=== PATIENT | female | born 1960 | race Caucasian/White ===

== ENCOUNTER 2021-10-31 08:27 | Outpatient (CLI) | payer MEDICARE, MEDICAID, SELFPAY ==
[2021-10-31 14:46] LABS: Alanine Aminotransferase* 45 U/L (4-35); Aspartate Amino Transferase* 46 U/L (12-35)
[2021-10-31 15:02] LABS: Free T4 Free Thyroxine* 0.81 ng/dL (0.70-1.85)
[2021-10-31 15:20] LABS: Thyroid Stimulating Hormone* < 0.015 uIU/mL (0.270-4.20)
== END 2021-10-31 08:28 | disposition home or self-care (01) ==
PROVIDERS: PCP Nurse Practitioner Family; Visit Provider Nurse Practitioner Family
DX: E03.9 Hypothyroidism, unspecified (principal); R74.8 Abnormal levels of other serum enzymes; F41.9 Anxiety disorder, unspecified; Z13.0 Encounter for screening for diseases of the blood and blood-forming organs and certain disorders involving the immune mechanism
CPT/HCPCS: 82728; 84439; 84443; 84450; 84460; 84480; 84481; 84482

== ENCOUNTER 2021-10-31 14:07 | Outpatient (REF) | payer MEDICARE, MEDICAID, SELFPAY ==
[2021-10-31 16:14] LABS: Thyroid Stimulating Hormone* < 0.015 uIU/mL (0.270-4.20)
[2021-11-02 01:41] LABS: Free T3 3.4 pg/mL (2.5-4.3)
[2021-11-08 18:04] LABS: T3, Ratio (T3:RT3) 9.3 (4.2-11.0); T3, Total - LC-MS/MS 102 ng/dL (80-200)
== END 2021-10-31 14:08 | disposition home or self-care (01) ==
LOC: NPINS 14:07
PROVIDERS: PCP Nurse Practitioner Family; Visit Provider Family Medicine
DX: E03.9 Hypothyroidism, unspecified (principal)
CPT/HCPCS: 82728; 84439; 84443; 84450; 84460; 84480; 84481; 84482

== ENCOUNTER 2022-08-27 13:04 | Outpatient (CLI) | payer MEDICARE, MEDICAID, SELFPAY ==
--- NOTE | 2022-08-27 13:20 | CRLHL7_ITS ---
For Patients: As a result of the Century Cures Act, medical imaging exams and procedure reports are released immediately into your electronic medical record. You may view this report before your referring provider. If you have questions, please contact your health care provider. DIGITAL SCREENING BILATERAL MAMMOGRAM USING TOMOSYNTHESIS AND COMPUTER-AIDED DETECTION INDICATION: 61-year-old asymptomatic female. Breast implants. Family history of breast cancer. TECHNIQUE: CC and MLO views were obtained. This digital study was evaluated with assistance of computer-aided detection. Digital breast tomosynthesis utilized. COMPARISON: 11/06/2020. FINDINGS: Breast Composition: There are areas of scattered fibroglandular density. Intact BILATERAL subpectoral breast implants. Small lymph node upper outer LEFT breast. No suspicious microcalcifications or regions of architecture distortion identified in either breast. No significant change. IMPRESSION: Stable and negative mammogram. Annual mammography recommended. BI-RADS Category 2: Benign A lay language report of this examination will be provided to the patient. Dictated by: Dustin Malin MD @08/28/2022 8:17:02 AM jj/Dictated by: Dustin Malin MD @ 08/28/2022 8:17:00 AM (Electronically Signed)
== END 2022-08-27 13:05 | disposition home or self-care (01) ==
PROVIDERS: PCP Nurse Practitioner Family; Visit Provider Nurse Practitioner Family
DX: Z12.31 Encounter for screening mammogram for malignant neoplasm of breast (principal)
CPT/HCPCS: 77063; 77067